=== PATIENT | female | born 1940 | race Caucasian/White ===

== ENCOUNTER 2018-04-01 14:57 | Emergency (ER) | payer MEDICARE, BC ==
[2016-05-14 12:25] VITALS: BMI 25.1
[~2018-04-01 14:57] MED LIST: ASPIRIN 81 MG E81 MG PO; CATAPRES0.1 MG PO; CELEXA20 MG PO; PERCOCET 10/3251 TA1 PO; PLAVIX75 MG PO; PROAIR HFA8.5 GM INH; PROTONIX40 MG PO; RESTORIL15 MG PO; ZOCOR20 MG PO; ZYRTEC10 M1 PO
[2018-04-01 16:15] LABS: APPEARANCE CLEAR (CLEAR); BILIRUBIN NEGATIVE (NEGATIVE); COLOR YELLOW (YELLOW); GLUCOSE NEGATIVE (NEGATIVE); KETONE SMALL mg/dL (NEGATIVE); NITRITE NEGATIVE (NEGATIVE); PROTEIN NEGATIVE (NEGATIVE); UROBILINOGEN NORMAL (NORMAL)
[2018-04-01 16:18] LABS: BACTERIA FEW /hpf (NONE SEEN); WHITE CELLS - URINE 0-5 /hpf (0-5)
[2018-04-01 16:26] LABS: BASOPHILS 0.4 % (0-2); EOSINOPHILS 2.8 % (0-7); HEMATOCRIT 33.7 % (36.0-48.0); HEMOGLOBIN 11.6 g/dL (12-16); IMMATURE GRANULOCYTES 0.2 % (0-5); LYMPHOCYTES 28.9 % (15-50); MCHC 34.4 g/dL (31.0-37.0); MCV 95.7 fL (80.0-100.0); MEAN PLATELET VOLUME 9.4 fL (7.4-10.4); MONOCYTES 14.5 % (2-11); NEUTROPHILS 53.2 % (40-80); PLATELET COUNT 206 10x3/uL (130-400); RBC 3.52 10x6/uL (4.00-5.40); RDW 12.7 % (11.5-14.5); WBC 4.6 10x3/uL (4.8-10.8)
[2018-04-01 16:41] LABS: ALBUMIN 3.9 g/dL (3.4-5.0); ANION GAP 14.3 mmol/L (8-16); BILIRUBIN - TOTAL 0.43 mg/dL (0.2-1.3); CALCIUM 9.2 mg/dL (8.5-10.1); CARBON DIOXIDE 25.1 mmol/L (21.0-32.0); POTASSIUM - SERUM 4.4 mmol/L (3.5-5.1); PROTEIN - SERUM 7.8 g/dL (6.4-8.2)
[2018-04-01 17:03] LABS: APTT 24.6 SECONDS (22.8-39.4); INR 0.95 (0.85-1.17); PROTIME 12.3 SECONDS (11.6-15.0)
== END 2018-04-01 17:26 | disposition home or self-care (01) ==
LOC: D.ER 14:57
PROVIDERS: Physician Assistant Medical
DX: S00.93XA Contusion of unspecified part of head, initial encounter (principal); S40.012A Contusion of left shoulder, initial encounter; S50.02XA Contusion of left elbow, initial encounter; W19.XXXA Unspecified fall, initial encounter; Y93.89 Activity, other specified; Y92.019 Unspecified place in single-family (private) house as the place of occurrence of the external cause; R55 Syncope and collapse

== ENCOUNTER 2019-01-27 18:17 | Emergency (ER) | payer MEDICARE, BC ==
[~2019-01-27] VITALS: Ht 157.5 cm; Wt 61.4 kg
[2019-01-27 18:21] VITALS: Ht 157.5 cm; Wt 61.4 kg
[2019-01-27] MEDS ORDERED: ZOFRAN ODT4 MG/UDTAB PO (19:53)
[2019-01-27] MEDS ORDERED: MECLIZINE HCL25 MG PO (19:53)
[2019-01-27 20:28] VITALS: BP 140/74
== END 2019-01-27 20:08 | disposition home or self-care (01) ==
LOC: D.ER 18:17
DX: R42 Dizziness and giddiness (principal); H66.90 Otitis media, unspecified, unspecified ear; R11.2 Nausea with vomiting, unspecified

== ENCOUNTER → 2019-03-14 09:20 | Outpatient (CLI) | payer MEDICARE, BC ==
[2019-01-27 18:21] VITALS: BMI 24.7
[~2019-03-14 09:20] MED LIST changes: +MECLIZINE HCL25 MG PO; +ZOFRAN ODT4 MG/UDTAB PO
== END | disposition home or self-care (01) ==
LOC: D.CT 09:20
PROVIDERS: ATTEND Nurse Practitioner
DX: I65.23 Occlusion and stenosis of bilateral carotid arteries (principal)

== ENCOUNTER → 2020-05-28 10:37 | Outpatient (CLI) | payer MEDICARE, BC ==
[2019-01-27 18:21] VITALS: BMI 24.7
== END | disposition home or self-care (01) ==
LOC: D.HCCARDIO 10:37 → D.HCCECHO 11:30
PROVIDERS: ATTEND Internal Medicine Cardiovascular Disease
DX: I25.10 Atherosclerotic heart disease of native coronary artery without angina pectoris (principal)

== ENCOUNTER 2020-06-27 07:21 | Day surgery (SDC) | payer MEDICARE, BC ==
[~2020-06-27] VITALS: Ht 157.5 cm; Wt 64.9 kg
--- NOTE | ~2020-06-27 | HEMODYNAMI ---
PATIENT:DAYSI ZHAO MEDICAL RECORD: [id number] : 42 LOCATION:[facility] ADMISSION DATE: 06/27/20 Generatedon:06/27/202010:21 Patient name: DAYSI ZHAO Patient #: [id number] SSN: [id number] : 1940 Date of study: 06/27/2020 Page: Of Hemodynamic Procedure Report Patient Data Patient Demographics Procedure consent was obtained First Name: DAYSI Gender: Female Last Name: PAVEL : 1940 Patient #: [id number] Age: 79 year(s) Race: SSN: [id number] Additional ID: [id number] Contact details [address]: [address] [place] [address] State: [place] City: [place] Zip code: [address] Admission Admission Data Admission Date: 06/27/2020 Admission Time: 7:21 Arrival Date: 06/27/2020 Arrival Time: 9:00 Admit Source: Other Insurance Payor: Medicare [facility] #: [id number] Lab Results Lab Result Date: 06/27/2020 Lab Result Time: 0:00 Biochemistry Name Units Result Min Max BUN mg/dl 21 --(----)-* 7 18 Creatinine mg/dl 1.1 --(--*-)-- 0.6 1.3 eGFR ml/min 51 *-(----)-- 90 120 NONAFRICAN CBC Name Units Result Min Max Hemoglobin g/dl 12.2 *-(----)-- 13.5 17.5 Procedure Procedure Types Cath Procedure Diagnostic Procedure LHC LH w/Coronaries FFR/IVUS FFR Initial Sedation Charges Moderate Sedation up to 30 minutes PCI Procedure Coronary Stent Coronary Stent Initial Hemochron ACT Test Procedure Description Procedure Date Procedure Date: 06/27/2020 Procedure Start Time: 9:48 Procedure End Time: 10:13 Procedure Staff Name Function Monty Oglesby MD Performing Physician Kim Rodriguez RT Monitor Tripp Mccabe RT Scrub Cori Huerta RN Nurse Procedure Data Cath Procedure Fluoroscopy Diagnostic fluoroscopy Total fluoroscopy Time: 5.3 time: 5.3 min min Diagnostic fluoroscopy Total fluoroscopy dose: 572 dose: 572 mGy mGy Contrast Material Contrast Material Type Amount (ml) Isovue 300 113 Entry Location Entry Primary Successful Side Size Upsize Upsize Entry Closure Succes sful Closure Location (Fr) 1 (Fr) 2 (Fr) Remarks Device Remarks Femoral Right 5 Fr 6 Fr Exoseal artery Short Estimated blood loss: 5 ml Diagnostic catheters Device Type Used For End Catheter Placement MULTIPACK JL 4.0 5Fr Left Coronary catheter Angiography MULTIPACK 3DRC 5Fr Right Coronary catheter Angiography MULTIPACK Pigtail 5 Fr LV Angiography catheter DIAGNOSTIC JL 4.0 5Fr Left Coronary catheter ([id number]) Angiography Procedure Complications No complications Procedure Medications Medication Administration Route Dosage Oxygen etCO2 Nasal cannula 2 l/min Lidocaine 2% added to field 20 Heparin Flush Bag added to field 2 bags (1000units/500ml NS) 0.9% NaCl I.V. 100 ml/hr Versed I.V. 1 mg Fentanyl I.V. 50 mcg Versed I.V. 1 mg Fentanyl I.V. 50 mcg Heparin Bolus I.V. 4000 units Versed I.V. 1 mg Integrilin (Bolus I.V. 5.6 ml 2mg/ml) Plavix P.O. 600 mg Nitroglycerin IC/IA Hemodynamics Rest HGB: 12.2 (g/dl) Heart Rate: 63 (bpm) Pressure Samples Time Site Value (mmHg) Purpose Heart Use Rate(bpm) 9:52 LV 142/26,32 Snapshot 76 Gradients Valve Time Site Site Mean SEP/DFP Peak To Heart Use 1 2 (mmHg) (sec/min) Peak Rate (mmHg) (bpm) Aortic 9:53 LV AO 79 Snapshots Pre Cath Intra NCS Post Cath Vital Signs Time Heart Resp SPO2 etCO2 NIBP (mmHg) Rhythm Pain Sedation Rate (ipm) (%) (mmHg) Status Level (bpm) 9:34:17 61 20 100 30.7 144/72(103) NSR 0 (11) 10(A) , No pain 9:38:17 61 15 100 37.5 129/67(107) NSR 0 (11) 10(A) , No pain 9:42:18 59 10 99 40.5 113/58(78) NSR 0 (11) 10(A) , No pain 9:46:22 62 14 99 29.2 89/50(78) NSR 0 (11) 9(A) , No pain 9:50:46 72 15 97 4.5 124/67(105) NSR 0 (11) 9(A) , No pain 9:54:42 72 14 100 23.2 117/64(81) NSR 0 (11) 9(A) , No pain 9:58:42 67 14 100 29.2 89/56(75) NSR 0 (11) 9(A) , No pain 10:02:37 71 18 100 28.5 97/58(85) NSR 0 (11) 9(A) , No pain 10:06:35 68 19 100 30.8 93/57(78) NSR 0 (11) 9(A) , No pain 10:11:01 70 15 100 34.5 120/59(82) NSR 0 (11) 10(A) , No pain Medications Time Medication Route Dose Verified Delivered Reason Notes Effectiveness by by 9:36:27 Versed I.V. 1 mg Monty Buffie for sedation St Eduin Huerta RN, MD 9:36:48 Oxygen etCO2 2 Monty Buffie used for Nasal l/min St Eduin Huerta RN procedure cannula 9:36:56 Lidocaine 2% added 20ml Monty Monty for local to vial [facility] anesthetic field MD JOHNSON 9:37:02 Heparin Flush added 2 Monty Monty used for Bag to bags [facility] procedure (1000units/500ml field MD JOHNSON NS) 9:37:11 0.9% NaCl I.V. 100 Monty Buffie Per physician ml/hr St Eduin Huerta RN, MD 9:42:28 Versed I.V. 1 mg Monty Buffie for sedation St Eduin Huerta RN, MD 9:42:33 Fentanyl I.V. 50 Monty Buffie for sedation mcg St Eduin Huerta RN, MD 9:48:55 Versed I.V. 1 mg Monty Buffie for sedation St Eduin Huerta RN, MD 9:48:59 Fentanyl I.V. 50 Monty Aleaie for sedation mcg St Eduin Huerta RN, MD 9:56:23 Heparin Bolus I.V. 4000 Monty Buffie for verif ied units St Eduin Huerta RN anticoagulation with dr MD storm 9:58:20 Integrilin I.V. 5.6 Monty Persaud for waste d (Bolus 2mg/ml) ml St Eduin Huerta RN antiplatelet 4.4 ml therapy of vial 10:13:36 Nitroglycerin Monty Persaud mixed IC/IA St Eduin Huerta RN and MD placed onto field. 10:16:10 Plavix P.O. 600 Monty [address] for mg St Eduin Huerta RN antiplatelet therapy Procedure Log Time Note 8:52:29 Informed consent obtained and on chart 8:52:34 Diagnostic Cath Status : Elective 8:57:15 Arrival Date: 06/27/2020 9:00:00 AM 8:57:52 Admit Source: Other 8:58:20 Insurance Payor : Medicare 8:58:44 Procedure Status Elective Heart Cath (OP). 8:58:48 Cori Huerta RN sent for patient. Start room use. 8:58:49 Time tracking: Regular hours (M-F 7:00 - 5:00) 8:58:53 Plan of Care:Hemodynamics will remain stable., Cardiac rhythm will remain stable., Comfort level will be maintained., Respiratory function will remain adequate., Patient/ family verbilizes understanding of procedure., Procedure tolerated without complication., Recovers from procedure without complications.. 9:23:56 Lab Result : eGFR NONAFRICAN 51 ml/min 9:23:56 Lab Result : Creatinine 1.1 mg/dl 9:23:56 Lab Result : BUN 21 mg/dl 9:23:56 Lab Result : Hemoglobin 12.2 g/dl 9:24:33 SCAI program not responding 9:24:40 1) 90+ Normal kidney functon but urine findings or structural abnormalities or genetic trait point to kidney disease. 9:24:43 Maximum allowable contrast dose (3.7 X eGFR X 0.75)250 ml. 9:25:21 Patient received from Pre/Post Procedure Room to CCL 2 Alert and oriented. Tansferred to table in Supine position. 9:25:22 Warm blankets applied, and gunner hugger turned on for patient comfort. 9:25:22 Correct patient and procedure confirmed by team. 9:25:22 ECG and BP/O2 sat monitors applied to patient. 9:33:30 Vital chart was started 9:33:31 Baseline sample Acquired. 9:33:35 Rhythm: sinus rhythm 9:33:36 Full Disclosure recording started 9:33:45 H&P Date Dictated: 06/27/2020 H&P Addendum completed by physician on day of procedure. (MUST COMPLETE FOR ALL OUTPATIENTS), New H&P dictated by physician.. 9:33:47 Pre-procedure instructions explained to patient. 9:33:47 Pre-op teaching completed and patient verbalized understanding. 9:33:49 Family in patients room. 9:33:50 Patient NPO since Midnight. 9:33:52 Is the patient allergic to Iodine/contrast media? No. 9:33:53 Was the patient premedicated? Yes 9:33:54 Is patient on blood thinner?No 9:33:55 Patient diabetic? No. 9:33:58 Previous problem with sedation/anesthesia? No ? 9:33:59 Snore? Yes 9:34:00 Sleep apnea? No 9:34:01 Deviated septum? No 9:34:02 Opens mouth fully? Yes 9:34:03 Sticks out tongue? Yes 9:34:06 Airway obstruction? No ? 9:34:10 Dentures? No ? 9:34:25 Pre procedure: right posterior tibial pulse 1+ Palpable, but thready & weak; easily obliterated 9:34:38 Pre procedure: left posterior tibial pulse 1+ Palpable, but thready & weak; easily obliterated 9:34:45 IV patent on arrival in left forearm with 0.9% NaCl at KVO. 9:34:47 Lab results completed and on chart. 9:35:12 Right groin area was prepped with chlora-prep and draped in sterile fashion 9:35:13 Alarms reviewed by R. N. 9:35:13 Sharps counted by scrub and verified by R.N. 9:35:15 Physician arrived 9:35:15 --------ALL STOP TIME OUT------ 9:35:15 Final Timeout: patient, procedure, and site verified with staff and physician. All members of the team are in agreement. 9:35:17 Right groin site verified by team. 9:35:20 Fire Safety Assessment: A--An alcohol-based skin anteseptic being used preoperatively., C--Open oxygen or nitrous oxide is being used., D--An ESU, laser, or fiber-optic light is being used. 9:35:24 Physical assessment completed. ASA score P 2 - A patient with mild systemic disease as per Monty Oglesby MD. 9:35:29 Sedation plan: IV Moderate Sedation Medication:Versed, Fentanyl 9:35:34 Use device set Femoral Dx 9:35:35 ACIST Syringe (80032) opened to sterile field. 9:35:36 Bag Decanter (2002S) opened to sterile field. 9:35:36 Medline Cath Pack ([id number]) opened to sterile field. 9:35:37 ACIST Hand Control (51947) opened to sterile field. 9:35:38 ACIST Manifold (15978) opened to sterile field. 9:35:38 DIAGNOSTIC Multipack 5Fr catheter set (UX2044) opened to sterile field. 9:35:39 Tegaderm 4 x 4 (1626W) opened to sterile field. 9:35:39 SHEATH 5FR [place] (EDC999) opened to sterile field. 9:35:40 EMERALD Guide Wire (240-639) opened to sterile field. 9:36:27 Versed 1 mg I.V. was administered by Cori Huerta RN; for sedation; Verbal order read back and verified. 9:36:48 Oxygen 2 l/min etCO2 Nasal cannula was administered by Cori Huerta RN; used for procedure; Verbal order read back and verified. 9:36:56 Lidocaine 2% 20ml vial added to field was administered by Monty Oglesby MD; for local anesthetic; Verbal order read back and verified. 9:37:02 Heparin Flush Bag (1000units/500ml NS) 2 bags added to field was administered by Monty Oglesby MD; used for procedure; Verbal order read back and verified. 9:37:11 0.9% NaCl 100 ml/hr I.V. was administered by Cori Huerta RN; Per physician; Verbal order read back and verified. 9:41:41 Zero performed for pressure channel P1 9:42:28 Versed 1 mg I.V. was administered by Cori Huerta RN; for sedation; Verbal order read back and verified. 9:42:33 Fentanyl 50 mcg I.V. was administered by Cori Huerta RN; for sedation; Verbal order read back and verified. 9:48:00 Procedure started. 9:48:03 Local anesthetic to right femoral artery with Lidocaine 2% by Monty Oglesby MD.INITIAL ACCESS ONLY 9:48:30 A 5 Fr sheath was inserted into the Right Femoral artery 9:48:55 Versed 1 mg I.V. was administered by Cori Huerta RN; for sedation; Verbal order read back and verified. 9:48:59 Fentanyl 50 mcg I.V. was administered by Cori Huerta RN; for sedation; Verbal order read back and verified. 9:49:07 A MULTIPACK JL 4.0 5Fr catheter was advanced over the wire and used for Left Coronary Angiography. 9:49:23 LCA angiography performed. 9:49:26 Injector settings: Ml/sec: 3, Volume: 6, 9:50:25 Catheter removed. 9:50:33 A MULTIPACK 3DRC 5Fr catheter was advanced over the wire and used for Right Coronary Angiography. 9:51:11 RCA angiography performed. 9:51:18 Injector settings: Ml/sec: 3, Volume: 6, 9:51:49 Catheter removed. 9:51:55 A MULTIPACK Pigtail 5 Fr catheter was advanced over the wire and used for LV Angiography. 9:52:41 LV hemodynamics recorded. 9:52:45 LV gram done using MANNING 9:52:49 Injector settings: Ml/sec: 5, Volume: 15, 9:52:58 EF : 55 % 9:53:32 Catheter removed. 9:53:33 Proceeding to intervention. 9:55:25 SHEATH 6FR [place] (VHA332) opened to sterile field. 9:55:26 INFLATOR Merit BasixCompak (RA4868) opened to sterile field. 9:55:27 [place] Verrata Plus pressure wire (94000C) opened to sterile field. 9:56:23 Heparin Bolus 4000 units I.V. was administered by Cori Huerta RN; for anticoagulation; verified with dr storm Verbal order read back and verified. 9:56:39 WHISPER 300cm guide wire ([id number]) opened to sterile field. 9:56:40 GUIDE 6FR HS I SH catheter ([id number]) opened to sterile field. 9:56:59 Sheath upsized to a 6 Fr Short. 9:57:09 A DIAGNOSTIC JL 4.0 5Fr catheter ([id number]) was advanced over the wire and used for Left Coronary Angiography. 9:58:20 Integrilin (Bolus 2mg/ml) 5.6 ml I.V. was administered by Cori Huerta RN; for antiplatelet therapy; wasted 4.4 ml of vial Verbal order read back and verified. 10:00:08 FFR/IFR wire advanced. 10:00:10 Baseline FFR 1. 10:01:37 mCirc lesion measured at 0.98\ with IFR 10::44 Wire removed. 10:01:44 Guide catheter removed. 10:03:15 ACC Pre-intervention LUCIANA Flow is 3. 10:04:21 Pre PCI Site: [place] pRCA has 80% stenosis. 10:04:30 6 Fr hs 1 sh guide catheter was inserted over the wire 10:05:35 whisper wire advanced. 10:06:20 Wire advanced across lesion. 10:08:06 Place stent Inflation Number: 1 A HEAVENLY RX 2.5 x 15 stent ([id number]) was prepped and advanced across the Prox RCA 80. The stent was deployed at 0 FRANCISCA for 0:30 (min:sec) 0. 10:09:55 Inflation number: 2 The stent balloon was then re-inflated across the Prox RCA 0 to 10 FRANCISCA for 0:30 (min:sec) . 10:10:46 Stent catheter was removed intact over wire. 10:10:47 Wire removed. 10:10:47 Guide catheter removed. 10:10:58 EXOSEAL 6Fr (EX600) opened to sterile field. 10:11:07 Sheath removed intact; hemostasis achieved with Exoseal to the Right Femoral artery. 10:11:12 ACC Post-intervention LUCIANA Flow is 3. 10:11:34 Procedure ended.(Physican Out) 10:11:43 Fluoroscopy time 05.30 minutes. 10:11:46 Fluoroscopy dose: 572 mGy 10:11:46 Flurop Dose total: 572 10:11:51 Dose Area Product 09238 mGy/cm. 10:11:54 Contrast amount:Isovue 300 113ml. 10:11:56 Maximum allowable dose exceeded? No. 10:11:57 Sharps counted by scrub and verified by R.N. 10:11:58 Insertion/operative site no bleeding no hematoma. 10:12:01 Post-op/insertion site Right Femoral artery dressed using a 4 x 4 and Tegaderm. 10:12:02 Post Procedure Pulses reassessed and unchanged 10:12:05 Post procedure rhythm: unchanged. 10:12:07 Estimated blood loss: 5 ml 10:12:09 Post procedure instruction explained to patient.Patient verbalizes understanding. 10:12:09 Patient needs reinforcement of post procedure teaching. 10:13:06 Procedure type changed to Cath procedure, Diagnostic procedure, LHC, [facility] w/Coronaries, FFR/IVUS, FFR Initial, Sedation Charges, Moderate Sedation up to 30 minutes, PCI procedure, Coronary Stent, Coronary Stent Initial, Hemochron ACT Test 10:13:07 Procedure and supply charges have been captured, reviewed, submitted and are correct. 10:13:10 Procedure Complication : No complications 10:13:21 Vital chart was stopped 10:13:23 [facility] Findings: MVD- PCI performed (see procedure note) 10:13:25 Operative report dictated upon procedure completion. 10:13:25 See physician's report for complete and final results. 10:13:28 Report given to Pre/Post Procedure Room. 10:13:30 Patient transfered to Pre/Post Procedure Room with Stretcher. 10:13:32 Procedure ended. 10:13:32 Full Disclosure recording stopped 10:13:36 Nitroglycerin IC/IA was administered by Cori Huerta RN; ; mixed and placed onto field. Verbal order read back and verified. 10:13:40 ACC-PCI Only Patient was given prescriptions, or instructed by Monty Oglesby MD to start/continue the following medications upon discharge: Plavix 10:13:42 End room use (Document Last) 10:15:38 ACT drawn and resulted at 288 seconds. (normal therapeutic range 180-240 seconds). 10:15:51 End room use (Document Last) 10:16:10 Plavix 600 mg P.O. was administered by Cori Huerta RN; for antiplatelet therapy; Verbal order read back and verified. 10:16:21 End room use (Document Last) Intervention Summary Intervention Notes Time ActionType Lesion and Equipment Used Action# Pressure Duration Attributes 10:08:[address] stent Prox RCA HEAVENLY RX 2.5 x 1 0 00:30 15 stent ([id number]) 10:09:55 Reinflate Prox RCA HEAVENLY RX 2.5 x 2 10 00:30 stent 15 stent balloon ([id number]) Device Usage Item Name Manufacture Quantity Catalog Hospital Part Current Minimal Lot# / Number Charge Number Stock Stock Serial# Code ACIST Syringe Acist 1 78865 244156 016758 506560 20 (90492) Medical Systems Inc Bag Decanter Microtek 1 2001S 379565 98870 309681 5 () Medical Inc. Medline Cath Medline 1 [id number] 028170 98346 424923 5 Pack ([id number]) ACIST Hand Acist 1 60848 363857 879054 624869 5 Control Medical (02046) Systems Inc ACIST Manifold Acist 1 30396 508531 929420 774133 5 (55396) Medical Systems Inc DIAGNOSTIC Cardinal 1 DS8499 722344 47842 629329 30 Multipack 5Fr Health catheter set (FW3303) Tegaderm 4 x 4 3M 1 1626W 137794 691939 781479 5 (1626W) SHEATH 5FR Terumo 1 SLE790 315177 389403 003634 5 [place] (ZJS070) EMERALD Guide Cardinal 1 502-455 719018 179324 414405 5 Wire (502-455) Health MULTIPACK JL Cardinal 1 515161 5 4.0 5Fr Health catheter MULTIPACK 3DRC Cardinal 1 791386 5 5Fr catheter Health MULTIPACK Cardinal 1 536716 5 Pigtail 5 Fr Health catheter SHEATH 6FR Terumo 1 ZNP087 989573 405687 737189 40 [place] (QWO990) INFLATOR Merit Merit 1 JK8569 970627 371779 961661 15 [facility] (PR1461) Spicewood Spicewood 1 53951E 931597 496761702 311761 5 Verrata Plus pressure wire (42999K) DIAGNOSTIC JL Cardinal 1 [id number] 045181 787816 649794 10 4.0 5Fr Health catheter (470446D) WHISPER 300cm Bethea 1 [id number] 752369 842843 718972 5 guide wire Vascular (3350019PV) GUIDE 6FR HS I Medtronic 1 [id number] 721231 45708 752377 1 SH catheter (QW1WDEIO) HEAVENLY RX 2.5 x Medtronic 1 [id number] 900588 0507394 702121 5 [id number] 15 stent ([id number]) EXOSEAL 6Fr Cardinal 1 EX600 145272 298092 204654 10 (EX600) Health Signature Audit [place] Stage Time Signature Unsigned Intra-Procedure 06/27/2020 Kim Rodriguez 10:15:51 AM RT(R) Intra-Procedure 06/27/2020 Cori Huerta RN 10:16:21 AM Intra-Procedure 06/27/2020 Monty Levy 10:20:57 AM Eduin JOHNSON Signatures Performing Physician : Signature : Monty Oglesby MD Date : Time : Monitor : Kim Rodriguez RT Signature : Date : Time : Nurse : Cori Huerta RN Signature : Date : Time : [place] [address] [place] [address]
[2020-06-27] MEDS ORDERED: RESTORIL15 MG PO (08:26)
[2020-06-27] MEDS ORDERED: BAYER CHEWABLE81 MG PO (08:27)
[2020-06-27] MEDS ORDERED: PRAVACHOL20 MG PO (08:28)
[2020-06-27] MEDS ORDERED: NORVASC5 MG PO (08:28)
[2020-06-27 08:44] VITALS: BP 143/58; Ht 157.5 cm; Wt 64.9 kg
[2020-06-27 08:55] LABS: BASOPHILS 1.4 % (0-2); EOSINOPHILS 5.5 % (0-7); HEMATOCRIT 35.9 % (36.0-48.0); HEMOGLOBIN 12.2 g/dL (12-16); IMMATURE GRANULOCYTES 0.2 % (0-5); LYMPHOCYTES 40.6 % (15-50); MCH 32.9 pg (26.0-34.0); MCV 96.8 fL (80.0-100.0); MEAN PLATELET VOLUME 9.2 fL (7.4-10.4); MONOCYTES 14.2 % (2-11); NEUTROPHILS 38.1 % (40-80); PLATELET COUNT 235 10x3/uL (130-400); RBC 3.71 10x6/uL (4.00-5.40); RDW 12.8 % (11.5-14.5); WBC 4.4 10x3/uL (4.8-10.8)
[2020-06-27 09:08] LABS: ANION GAP 14.3 mmol/L (8-16); CALCIUM 9.4 mg/dL (8.5-10.1); CARBON DIOXIDE 23.8 mmol/L (21.0-32.0); CHOL - HDL RATIO 3.2 ratio (2.3-4.1); CREATININE - SERUM 1.1 mg/dL (0.6-1.3); LDL-HDL RATIO 1.9 ratio (1.5-3.5); POTASSIUM - SERUM 4.1 mmol/L (3.5-5.1)
[2020-06-27] MEDS ORDERED: PLAVIX75 MG PO (10:26)
--- NOTE | 2020-06-27 10:27 | NUR ---
PT ARRIVED BY STRETCHER. PLACED ON MONITORS. ASSESSMENT COMPLETED. VSS AT THIS TIME. CALL LIGHT WITHIN REACH. FAMILY AT BEDSIDE.
--- NOTE | 2020-06-27 10:42 | NUR ---
RIGHT GROIN DRESSING C/D/I. NO S/S OF HEMATOMA NOTED. CALL LIGHT WITHIN REACH. RIGHT PEDAL PULSE PALPABLE. PT DENIES NAUSEA. TOLERATING SIPS OF WATER AT THIS TIME. FAMILY AT BEDSIDE.
--- NOTE | 2020-06-27 11:10 | NUR ---
RIGHT GROIN DRESSING C/D/I. NO S/S OF HEMATOMA NOTED. CALL LIGHT WITHIN REACH. FAMILY AT BEDSIDE. NO NEEDS AT THIS TIME. VSS.
--- NOTE | 2020-06-27 11:40 | NUR ---
PT RESTING COMFORTABLY. VSS. RIGHT GROIN DRESSING C/D/I. NO S/S OF HEMATOMA NOTED. CALL LIGHT WITHIN REACH. FAMILY AT BEDSIDE. NO NEEDS AT THIS TIME. TOLERATING SIPS OF WATER. DENIES NAUSEA/PAIN.
--- NOTE | 2020-06-27 12:10 | NUR ---
PT RESTING COMFORTABLY. VSS. RIGHT GROIN DRESSING C/D/I. NO S/S OF HEMATOMA NOTED. CALL LIGHT WITHIN REACH. FAMILY AT BEDSIDE. RIGHT PEDAL PULSE PALPABLE. RIGHT LOWER EXT WARM TO TOUCH. DENIES NAUSEA/PAIN. TOLERATING SIPS OF WATER.
--- NOTE | 2020-06-27 12:40 | NUR ---
RIGHT GROIN DRESSING C/D/I. NO S/S OF HEMATOMA NOTED. CALL LIGHT WITHIN REACH. FAMILY AT BEDSIDE. NO NEEDS AT THIS TIME.
--- NOTE | 2020-06-27 13:20 | NUR ---
RIGHT GROIN DRESSING C/D/I. NO S/S OF HEMATOMA NOTED. HEAD OF BED INC TO 30 DEGREES. TOLERATED WELL. SET UP WITH SANDWICH TRAY AND DRINK AT THIS TIME.
--- NOTE | 2020-06-27 13:55 | NUR ---
RIGHT GROIN DRESSING C/D/I. NO S/S OF HEMATOMA NOTED. DISCUSSED DISCHARGE INSTRUCTIONS WITH PT AND PT'S FAMILY. THEY VOICED UNDERSTANDING. PIV D/C'D WITH CATH TIP INTACT. VSS. PT INSTRUCTED TO GET UP AND DRESSED AT THIS TIME. FAMILY AT BEDSIDE TO ASSIST. CALL LIGHT WITHIN REACH.
--- NOTE | 2020-06-27 14:10 | NUR ---
PT AMBULATED TO RESTROOM. VOIDED WITHOUT DIFFICULTY. STEADY GAIT NOTED. RIGHT GROIN DRESSING C/D/I. NO S/S OF HEMATOMA NOTED.
--- NOTE | 2020-06-27 14:15 | NUR ---
PT TAKEN DOWN TO VEHICLE BY WHEELCHAIR. NO S/S OF DISTRESS NOTED. ALL BELONGINGS AND PAPERWORK IN HAND.
--- NOTE | 2020-06-28 14:25 | OP ---
PATIENT NAME: DAYSI ZHAO MEDICAL RECORD: [id number] :42 LOCATION:D.CAT ADMISSION DATE: SURGEON: BEBE SANCHEZ MD DATE OF OPERATION: 06/27/2020 PROCEDURE: Left heart catheterization, selective coronary angiography, plus IFR to circumflex, plus PTCA stenting to the right coronary artery, right femoral artery approach. CATHETERS: A 5-Croatian sheath, 5/4 left and right Erum, 5/4 pig. The procedure was well tolerated. The patient returned to kumar, sheath removed. ExoSeal device placed. FINDINGS: Left ventriculography in 30-degree MANNING view: Normal wall motion. Normal systolic function. CORONARY ANATOMY: LEFT MAIN: Left main is free of disease. LAD: LAD is free of disease in the diagonal system. CIRCUMFLEX: Questionable area of restenosis at the proximal edge of the previously placed stent; however, IFR wire was normal. RIGHT CORONARY ARTERY: Somewhat codominant system and right coronary has a 90% stenosis, correlating nicely with nuclear study. PLAN: Intervention momentarily. DESCRIPTION OF PROCEDURE: A 5-Croatian sheath was exchanged for a 6-Croatian sheath. A Whisper wires provided good guide catheter support followed by a 300 cm Whisper wire was placed across the tightly occluded right down this portion of vessel. Stent deployed was a 2.5 x 15 mm David drug-eluting stent up to 45 atmospheres. Final angiography showed excellent resolution of 90% stenosis, no significant residual. LUCIANA flow was 3 throughout the procedure. Sheath was closed with ExoSeal device. Heparin and Integrilin were used during the case. Plavix was loaded in the lab. TRANSINT:[id number] Voice Confirmation ID: [id number] DOCUMENT ID: [id number] BEBE SANCHEZ MD at 1425 CC: [id number] DICTATION DATE: 06/27/20 1019 FITNESS SPECIALIST: 06/27/[address] [facility] 06/27/[address] [address]
--- NOTE | 2020-06-28 14:25 | HP ---
PATIENT: DAYSI ZHAO MEDICAL RECORD: [id number] ACCOUNT: [id number] LOCATION:CAN : 42 ADMISSION DATE: 06/27/20 PCP: DONNIE SEARS DO HISTORY AND PHYSICAL EXAMINATION HISTORY OF PRESENT ILLNESS: A 79-year-old female with a history of coronary artery disease, status post intervention of the right and circumflex, previously was seen in the office, underwent Cardiolite stress testing, showed reversible ischemia consistent with 2-vessel disease. He is being admitted for diagnostic angiography. PAST MEDICAL HISTORY: Includes: 1. History of hypertension. 2. Dyslipidemia. 3. Coronary artery disease as described above. MEDICATIONS: Include aspirin 81 mg p.o. daily, Celexa 10 mg every day, Norvasc 5 mg p.o. every day, pravastatin 10 every day. ALLERGIES: CODEINE. PHYSICAL EXAMINATION: GENERAL: Pleasant female, in no acute distress, appears stated age. HEENT: Normocephalic, atraumatic. NECK: No JVD or bruit. HEART: Regular. LUNGS: Good air excursion. ABDOMEN: Soft, nontender. EXTREMITIES: Pulse 2+ and no edema. IMAGING STUDIES: Nuclear stress testing is abnormal as described above. PLAN: For angiography, intervention based on the above. TRANSINT:[id number] Voice Confirmation ID: [id number] DOCUMENT ID: [id number] BEBE SANCHEZ MD at 1425 CC: [id number] DICTATION DATE: 06/27/20 0908 MANAGER ZONE: 06/27/20 1150 [facility] 06/27/20 [place] [address]
== END 2020-06-27 14:15 | disposition home or self-care (01) ==
LOC: D.CATH 07:21
PROVIDERS: ATTEND Internal Medicine Interventional Cardiology
DX: I25.10 Atherosclerotic heart disease of native coronary artery without angina pectoris (principal); E78.5 Hyperlipidemia, unspecified; I10 Essential (primary) hypertension
CPT/HCPCS: 93458; 93571; C9600